=== PATIENT | female | born 2000 | race Native Hawaiian/Other Pacific Islander ===

== ENCOUNTER 2022-03-05 14:42 | Outpatient (CLI) | payer MEDICAID, SELFPAY ==
[2022-03-05 21:29] LABS: GC DNA Amplified* NOT DETECTED (No Detected)
[2022-03-05 21:33] LABS: Chlamydia DNA Amplified* DETECTED (No Detected)
== END 2022-03-05 14:43 | disposition home or self-care (01) ==
PROVIDERS: Visit Provider Registered Nurse
DX: R30.9 Painful micturition, unspecified (principal); R10.2 Pelvic and perineal pain
CPT/HCPCS: 87086; 87491; 87591

== ENCOUNTER 2022-04-03 13:47 | Outpatient (CLI) | payer MEDICAID, SELFPAY ==
--- NOTE | 2022-04-03 14:00 | CRLHL7_ITS ---
For Patients: As a result of the Century Cures Act, medical imaging exams and procedure reports are released immediately into your electronic medical record. You may view this report before your referring provider. If you have questions, please contact your health care provider. CLINICAL HISTORY: pelvic pain, recent chlamydia infection TECHNIQUE: 2D [place] scale ultrasound. In addition color Doppler and spectral Doppler analysis was performed of the pelvis using a transvaginal and transvaginal approach. FINDINGS: Mildly heterogeneous uterine echotexture along with small cervical nabothian cysts. Uterus measures 7.9 x 4.1 x 4.0 cm. The endometrial lining measures 10 mm in thickness. The right ovary measures 4.1 x 1.8 x 2.4 cm in size and the left ovary measures 3.5 x 2.4 x 2.8 cm. The ovaries demonstrate normal arterial and venous blood flow on color Doppler and spectral Doppler analysis. There are no suspicious fluid collections within the cul-de-sac. IMPRESSION: No evidence of pelvic free fluid or ovarian torsion. No discernible fibroid. Dictated by Umberto Vega MD @ 04/03/2022 2:56:33 PM (Electronically Signed)
== END 2022-04-03 13:48 | disposition home or self-care (01) ==
LOC: US 13:48
PROVIDERS: Visit Provider Physician Assistant
DX: R10.2 Pelvic and perineal pain (principal)
CPT/HCPCS: 76830; 76856; 93976

== ENCOUNTER 2022-04-05 08:45 | Outpatient (CLI) | payer MEDICAID, SELFPAY ==
[2022-04-05 15:59] LABS: Chlamydia DNA Amplified* NOT DETECTED (No Detected); GC DNA Amplified* NOT DETECTED (No Detected)
== END 2022-04-05 08:46 | disposition home or self-care (01) ==
LOC: NFLDREF 08:45
PROVIDERS: Visit Provider Physician Assistant
DX: R10.2 Pelvic and perineal pain (principal)
CPT/HCPCS: 87086; 87491; 87591